=== PATIENT | female | born 1995 | race Caucasian/White ===

== ENCOUNTER 2018-11-22 21:58 | Inpatient (IN) | payer BC ==
[2018-11-22] MEDS ORDERED: Buffered Lidocaine 1% SYRIN* 1 ML/SYRINGE INTRADERM ONE (22:57)
[2018-11-22] MEDS ORDERED: Penicillin G Potassium IV* 5,000,000 UNITS in NS 0.9% 100 ML* 100 ML IVPB ONE (22:57)
[2018-11-22] MEDS ORDERED: Lactated Ringers 1000 ML Bag* 1,000 ML IV ONE (22:57)
[2018-11-22] MEDS ORDERED: Lactated Ringers 1000 ML Bag* 1,000 ML IV SCH (23:00)
--- NOTE | 2018-11-22 23:06 | HP ---
General Information - Reason for Visit IUP@40+2 in labor - General Information Maternal Age: 23 Grav: 1 Para: 0 SAB: 0 IEA: 0 Estimated Due Date: 11/20/18 Determined By: Early Ultrasound Gestational Age in Weeks/Days: 40+2 Maternal Blood Type and Rh: O Positive - Results this Serology/RPR Result: Non-Reactive Rubella Result: Immune HBsAg Result: Negative HIV Result: Negative GBS Culture Result: Positive Past Medical History Pertinent Past Medical History: See Records - Depression/anxiety, sensory integration disorder Pertinent Past Surgical History: None Pertinent Family History: See Records - Father: HTN; PGM Breast CA; PGF stroke; MGM anxiety heart disease; MGF Parkinsons - Antepartal Records Antepartal Records: Reviewed, Complicated by: - enlarged thyroid, echogenic focus left ventricle Review of Systems CV Complaint: No Respiratory: Shortness of Breath: No Gastrointestinal: No Nausea/Vomiting, Normal Bowel Movement Genitourinary: Bleeding - bloody show, No Dysuria, No Leaking Fluid Musculoskeletal: Contractions Neurological: No Headache, No Visual Changes Movement: Normal Exam Allergies/Adverse Reactions: Allergies No Known Allergies Allergy (Unverified 11/05/15 13:36) Temp: 98.3 BP 123/81 HR 93 O2 99 RR 20 - Measurements Height: 5 ft 6 in Weight: 180 lb Weight in lbs: [id number] Body Mass Index (BMI): 29.0 Pre- Weight: 135 lb Weight Gained This : 45 lbs and 0 ozs - Exam Breast: Breast Exam Deferred CVA: No CVA Tenderness Extremities: No Edema Heart: Normal Rhythm/Heart Sounds HEENT: No Significant Findings Lungs: Clear Bilaterally Rectal: Rectal Exam Deferred Reflexes: DTR 2+ Thyroid: - - Enlarged thyroid - Abdominal Exam Abdomen Exam: Non-Tender, Fundal Height Consistent with Dates - Ultrasound/Biophysical Profile Ultrasound Status: Not Done Targeted Exam Findings Estimated Weight: 7lbs Cervical Exam: 3cm, 4cm Effacement: 90% Station: -1 Presenting Part: Vertex Membrane Status: Intact Bleeding/Discharge: Bloody Show EFM Findings - External Monitor Findings Baseline Heart Rate: 120 External Monitor Findings: Accelerations Present, No Pattern of Variable or Late Decelerations, Variability Moderate Contractions: Regular, Moderate, >90 Seconds - 3-5 minutes Assessment/Plan - Assessment IUP@40+2 here in labor GBS+ Regular contractions No evidence of metabolic acidemia at bedside, supportive - Obstetrical Risk Factors Obstetrical Risk Factors: GBS Positive - Plan Plan: Admit - Anticipate Vaginal Delivery Plan Comment: Admit to L&D Abx prophylaxis for GBS Epidural PRN Anticipate progression to - Date/Time of Admission Date of Admission: 11/22/18 Time of Admission: 23:00
[2018-11-22 23:26] LABS: ABS Basophils 0 10^3/ul (0-0.2); ABS Eosinophils 0.1 10^3/ul (0-0.6); ABS Lymphocytes 1.6 10^3/ul (1.0-4.8); ABS Monocytes 0.7 10^3/ul (0-0.8); ABS Neutrophils 6.9 10^3/ul (1.5-7.7); ABS Nucleated RBC 0 10^3/ul; Eosinophil % 1.5 %; Hematocrit 38 % (35-47); Hemoglobin 13.3 g/dl (12.0-16.0); Lymphocyte % 16.9 %; Mean Corpuscular HGB Conc 35 g/dl (31-36); Mean Corpuscular Hemoglobin 32 pg (27-31); Mean Corpuscular Volume 94 fL (80-97); Mean Platelet Volume 9.2 fL (7.4-10.4); Nucleated Red Blood Cells % 0; Platelet Count 195 10^3/ul (150-450); Red Blood Count 4.08 10^6/ul (4.00-5.40); Red Cell Distribution Width 13 % (10.5-15); White Blood Count 9.3 10^3/ul (3.5-10.8)
[2018-11-23] MEDS ORDERED: OBEPIDURAL* 250 ML EPIDURAL ONE (00:43)
--- NOTE | 2018-11-23 00:59 | PN ---
Progress Note - Progress Note Date of Service: 11/23/18 Note: Pt requesting VE -VE: 3.5/90%/-1, bulging bag Pt requesting epidural Anesthesia aware Anticipate progression to
[2018-11-23] MEDS ORDERED: Bupivacaine 0.5% SDV PF* 30ML VIAL ONE (01:07)
[2018-11-23] MEDS ORDERED: Lidocaine 1% INJ* 10 MG/ML 30 ML SDV ONE ×2 (01:07→15:27)
[2018-11-23] MEDS ORDERED: Lidocaine 1% MPF wEPI 200,000* 30 ML SDV ONE (01:07)
[2018-11-23] MEDS ORDERED: Lidocaine 1.5% EPI 1:200,000* 30 ML SDV ONE (01:08)
[2018-11-23] MEDS ORDERED: Lactated Ringers 1000 ML Bag* 1,000 ML IV ONE (01:34)
[2018-11-23] MEDS ORDERED: Phenylephrine IV* 40 MCG/ML 10 ML SYRINGE IV PUSH PRN ×2 (01:34)
[2018-11-23] MEDS ORDERED: Sodium Citrate/Citric Acid* 15 ML UDC PO PRN (01:34)
[2018-11-23] MEDS ORDERED: Lactated Ringers 1000 ML Bag* 1,000 ML IV SCH ×2 (02:00→17:00)
[2018-11-23] MEDS ORDERED: OBEPIDURAL* 250 ML EPIDURAL SCH (02:00)
[2018-11-23] MEDS: Penicillin G Potassium IV* 2,500,000 UNITS in NS 0.9% 100 ML* 100 ML IVPB SCH ×3 (04:06→12:01)
--- NOTE | 2018-11-23 07:12 | PN ---
Progress Note - Progress Note Date of Service: 11/23/18 Note: S: Pt resting comfortably in bed with epidural States feeling more pressure, requesting VE Pt with supportive family at bedside O: FHR 130, +accels, moderate variability Ctx q2-4, good resting tone VE: 7/100/-1, bulging bag A: Regular contractions No evidence of acidemia Making cervical change P: VE PRN Anticipate progression to
--- NOTE | 2018-11-23 10:02 | PN ---
Progress Note - Progress Note Date of Service: 11/23/18 Note: S: Pt resting comfortably in bed with epidural States feeling more pressure, requesting VE Pt with supportive family at bedside O: FHR 130, +accels, moderate variability Ctx q2-5, good resting tone VE: 8/100/-1, bulging bag A: Regular contractions No evidence of acidemia Making cervical change P: VE PRN Consider AROM with next VE Anticipate progression to
--- NOTE | 2018-11-23 12:58 | PN ---
Progress Note - Progress Note Date of Service: 11/23/18 Note: S: Pt resting comfortably in bed with epidural Pt with supportive family at bedside O: FHR 130, +accels, moderate variability Ctx q3-6, good resting tone VE: 8/100/-1, AROM clear fluid A: Contractions spacing No evidence of acidemia Making cervical change P: VE PRN Discussed risk vs. benefits of Pit augmentation. Will start low-dose Pit. Anticipate progression to
[2018-11-23] MEDS ORDERED: Oxytocin in LR* 20 UNITS/1,000 ML BAG IVPB SCH ×2 (13:00→17:00)
[2018-11-23] MEDS ORDERED: Dibucaine 1% 28.35 GM TUBE PR PRN (16:39)
[2018-11-23] MEDS ORDERED: Glycerin ADULT SUPP PR PRN (16:39)
[2018-11-23] MEDS ORDERED: Witch Hazel PAD* JAR TOPICAL PRN (16:39)
[2018-11-23] MEDS ORDERED: Acetaminophen TAB* 325 MG PO PRN (16:39)
--- NOTE | 2018-11-23 17:29 | PROCNOTE ---
[facility] OB: Delivery Note - Delivery A Date of : 11/23/18 Time of : 14:54 [place] Sex: Male Weight at : 3500 lb Score 1 Minute: 7 Score 5 Minutes: 9 Gestational Age in Weeks and Days at Delivery: 40 Weeks and 3 Days Delivery Method: Spontaneous Vaginal Labor: Spontaneous Did Patient attempt ?: N/A, No Previous Amniotic Fluid: Clear Estimated Blood Loss: 400 Anesthesia/Analgesia: CEI for Labor Delivered By: Zo Franklin Nursery Level of Nursery: Regular/Bedside - Perineum Perineal Injury: 1st Degree - Events Delivery Events of Note: Pitocin During Labor, Full Course of Antibiotics - Risk for Falls Other Risk for Falls: none - Additional Delivery Notes Additional Delivery Notes: Pt admitted at 40+2 days in early labor and progressed to active labor with a CEI in place. Labor was augmented by AROM (clear fluid) and pitocin. Strong maternal pushing effort led to , liveborn male. OA to TANYA, shoulders followed easily. vigorous with spontaneous cry, heartbeat >110 BPM. Delivered to maternal abdomen. Length of labor 15 hours and 30 minutes. Pt pushed for 44 minutes. Cord clamped and cut by FOB. Spontaneous delivery of intact placenta, membranes complete. Fundus firm to massage with pitocin infusing. Minimal bleeding noted. Careful inspection of the perineum revealed a first degree laceration, repaired in the usual fashion, anatomy restored, good hemostasis achieved. EBL 400mL. At time of note, mother and in stable condition, planning to breastfeed.
[2018-11-23] MEDS: Ibuprofen TAB* 600 MG PO PRN (18:06)
[2018-11-23] MEDS: Simethicone TAB* 80 MG TAB.CHEW PO SCH (19:09)
[2018-11-24] MEDS: Ibuprofen TAB* 600 MG PO PRN ×4 (00:15→20:00)
[2018-11-24] MEDS: Docusate CAP* 100 MG PO SCH ×4 (00:15→20:01)
[2018-11-24 06:02] LABS: ABS Basophils 0.1 10^3/ul (0-0.2); ABS Eosinophils 0.1 10^3/ul (0-0.6); ABS Lymphocytes 1.7 10^3/ul (1.0-4.8); ABS Monocytes 0.7 10^3/ul (0-0.8); ABS Neutrophils 8.9 10^3/ul (1.5-7.7); ABS Nucleated RBC 0 10^3/ul; Eosinophil % 1.1 %; Hematocrit 31 % (35-47); Hemoglobin 10.7 g/dl (12.0-16.0); Mean Corpuscular HGB Conc 35 g/dl (31-36); Mean Corpuscular Hemoglobin 33 pg (27-31); Mean Corpuscular Volume 95 fL (80-97); Mean Platelet Volume 8.5 fL (7.4-10.4); Nucleated Red Blood Cells % 0; Platelet Count 148 10^3/ul (150-450); Red Blood Count 3.23 10^6/ul (4.00-5.40); Red Cell Distribution Width 13 % (10.5-15); White Blood Count 11.5 10^3/ul (3.5-10.8)
[2018-11-24] MEDS ORDERED: Ferrous Gluconate TAB* 324 MG TAB PO SCH (09:00)
--- NOTE | 2018-11-24 16:33 | PTEDU ---
Patient Name: KASSANDRA COOPER KASSANDRA COOPER selected video: Never Ever Shake a Baby to view on 11/24/2018 at 4:32:22 PM [id number]
--- NOTE | 2018-11-24 16:57 | PTEDU ---
Patient Name: KASSANDRA COOPER KASSANDRA COOPER selected video: BBOB: Nurturing Your Gorgeous &Growing Baby by to view on 11/24/2018 at 4:56:25 [id number]
--- NOTE | 2018-11-24 17:26 | PTEDU ---
Patient Name: KASSANDRA COOPER KASSANDRA COOPER selected video: BBOB: Bonding Through Infant Massage to view on 11/24/2018 at 5:26:01 PM from [id number]
[2018-11-24] MEDS: Simethicone TAB* 80 MG TAB.CHEW PO SCH (17:46)
[2018-11-24 20:20] VITALS: BP 124/71
[2018-11-25] MEDS: Ibuprofen TAB* 600 MG PO PRN ×2 (04:19→17:13)
--- NOTE | 2018-11-25 12:51 | PTEDU ---
Patient Name: KASSANDRA COOPER KASSANDRA COOPER selected video: Follow Me Mum: [facility] to Successful to view on 11/25/2018 at 12:50:22 PM [id number]
--- NOTE | 2018-11-25 12:52 | PTEDU ---
Patient Name: KASSANDRA COOPER KASSANDRA COOPER selected video: Follow Me Mum: [facility] to Successful to view on 11/25/2018 at 12:51:52 PM [id number]
== END 2018-11-25 18:00 | disposition home or self-care (01) | DRG 560 ==
LOC: MCHOBOUT 21:58 → MCHOB 23:06
PROVIDERS: ADMIT Advanced Practice Midwife; ATTEND Midwife
PROC: 10E0XZZ Delivery of Products of Conception, External Approach (ICD-10-PCS; principal; 2018-11-23)
PROC: 10907ZC Drainage of Amniotic Fluid, Therapeutic from Products of Conception, Via Natural or Artificial Opening (ICD-10-PCS; 2018-11-23)
PROC: 0HQ9XZZ Repair Perineum Skin, External Approach (ICD-10-PCS; 2018-11-23)
DX: O48.0 Post-term pregnancy (principal); Z37.0 Single live birth; Z3A.40 40 weeks gestation of pregnancy; O99.824 Streptococcus B carrier state complicating childbirth; O70.0 First degree perineal laceration during delivery; O99.344 Other mental disorders complicating childbirth; F41.8 Other specified anxiety disorders
CPT/HCPCS: 36415; 85025; 86850; 86900; 86901; A9270-GY; J2001; J2540